=== PATIENT | female | born 1985 | race Caucasian/White ===

== ENCOUNTER 2018-12-25 12:24 | Day surgery (SDC) | payer OTHER ==
[~2018-12-25] VITALS: Ht 165.1 cm; Wt 45.1 kg
[2018-12-25 13:30] VITALS: BP 121/57; PULSE 77; RESP 37
[2018-12-25] MEDS ORDERED: OMEPRAZOLE (13:37)
[2018-12-25] MEDS ORDERED: [UNRECOGNIZED DRUG - REMARK] (13:37)
[2018-12-25] MEDS ORDERED: LIDOCAINE 2% (SDV) 5 ML INJ ONE (13:49)
[2018-12-25] MEDS ORDERED: PROPOFOL 20 ML ONE (13:49)
--- NOTE | 2018-12-25 13:52 | PREAC ---
Date/Time of Note Date/Time of Note DATE: 12/25/18 TIME: 13:51 Anesthesia Eval and Record Evaluation Time Pre-Procedure Interview DATE: 12/25/18 TIME: 13:51 Age 33 Sex female NPO: 8 hrs Preoperative diagnosis dyspepsia Planned procedure EGD Past Medical History Past Medical History: Includes GI: GERD Surgery & Anesthesia Issues No known issue Meds Anticoagulation: No Beta Kyle within 24 hr: No Reason Beta Kyle not given: Pt. not on B-Kyle Reported Medications [Med For Genetic] No Conflict Check 12/25/18 [Omeprazole] No Conflict Check 12/25/18 Meds reviewed: Yes Allergies Coded Allergies: No Known Allergy (Unverified , 12/25/18) Allergies Reviewed: Yes Labs/Studies Labs Reviewed: Reviewed by anesthesiologist test: Negative Pre-procedure Exam Last vitals Vital Signs Date Temp Pulse Resp B/P (MAP) Pulse Ox O2 O2 Flow FiO2 Time Delivery Rate 12/25/18 99.3 13:46 12/25/18 77 37 121/57 100 Room Air 13:30 (78) Airway: Adequate mouth opening, Adequate thyromental dist Mallampati: Mallampati II Teeth: Normal Lung: Normal Heart: Normal ASA Physical Status ASA physical status: 1 Emergency: None Planned Anesthetic General/MAC: Mask Planned Pain Management Parenteral pain med Pre-operative Attestations Prior to commencing anesthesia and surgery, the patient was re-evaluated, there was verification of: *The patient's identity *The results of appropriate recent lab work and preoperative vital signs *The above evaluation not changing prior to induction *Anesthetic plan, risk benefits, alternative and complications discussed with patient/family; questions answered; patient/family understands, accepts and wishes to proceed. Clinical Documentation Specialist used STEVIE THOMAS MD Dec 25, 2018 13:51
[2018-12-25] MEDS ORDERED: ONDANSETRON 4 MG INJ IV PRN (14:00)
[2018-12-25 14:12] VITALS: BP 104/53; PULSE 76; RESP 19
--- NOTE | 2018-12-25 14:18 | PAC ---
Date/Time of Note Date/Time of Note DATE: 12/25/18 TIME: 14:17 Post-Anesthesia Notes Post-Anesthesia Note Last documented vital signs Vital Signs Date Temp Pulse Resp B/P (MAP) Pulse Ox O2 O2 Flow FiO2 Time Delivery Rate 12/25/18 99.3 13:46 12/25/18 77 37 121/57 100 Room Air 13:30 (78) Activity: WNL Respiratory function: WNL Cardiovascular function: WNL Mental status: Baseline Pain reasonably controlled: Yes Hydration appropriate: Yes Nausea/Vomiting absent: Yes Comments BP: 112/59 HR: 75 RR: 15 T: 98 SaO2: 100% STEVIE THOMAS MD Dec 25, 2018 14:18
[2018-12-25 14:21] VITALS: BP 100/55; PULSE 66; RESP 20
== END 2018-12-25 16:59 | disposition home or self-care (01) ==
LOC: GIL 12:24
PROVIDERS: ATTEND Internal Medicine Gastroenterology
DX: K29.00 Acute gastritis without bleeding (principal)
CPT/HCPCS: 43239; 84703; 88305; Z7610